=== PATIENT | male | born 1995 | race Caucasian/White ===

== ENCOUNTER 2021-05-19 08:47 | Emergency (ER) | payer OTHER ==
[~2021-05-19] VITALS: Ht 190.5 cm; Wt 61.2 kg
[2021-05-19] MEDS ORDERED: SERT50 PO (09:00)
[2021-05-19] MEDS ORDERED: IBUP800 PO (10:55)
[2021-05-19] MEDS ORDERED: Robaxin750 MG PO (10:55)
[2021-05-19] MEDS ORDERED: Acetaminophen500 MG PO (10:55)
[2021-05-19] MEDS ORDERED: METSALMENC TOP (10:55)
== END 2021-05-19 11:30 | disposition home or self-care (01) ==
LOC: ER 08:47
DX: S06.0X0A Concussion without loss of consciousness, initial encounter (principal); S00.83XA Contusion of other part of head, initial encounter; S16.1XXA Strain of muscle, fascia and tendon at neck level, initial encounter; G44.309 Post-traumatic headache, unspecified, not intractable; R07.89 Other chest pain; V47.5XXA Car driver injured in collision with fixed or stationary object in traffic accident, initial encounter; Z79.899 Other long term (current) drug therapy; Z91.048 Other nonmedicinal substance allergy status
CPT/HCPCS: 70450; 71045; 72125; 99284-25; A9270; J1200; J1885; J2765